=== PATIENT | male | born 1980 | race Hispanic/Latino ===

== ENCOUNTER 2021-08-10 14:13 | Emergency (ER) | payer BC ==
[~2021-08-10] VITALS: Ht 162.6 cm; Wt 81.2 kg
[2021-08-10] MEDS ORDERED: KETOROLAC TROMETHAMINE 60 MG/2 ML VIAL IM ONE (15:00)
== END 2021-08-10 15:19 | disposition home or self-care (01) ==
LOC: ER 14:25
DX: M54.41 Lumbago with sciatica, right side (principal); I10 Essential (primary) hypertension
CPT/HCPCS: 99283; J1885